=== PATIENT | female | born 1980 | race Hispanic/Latino ===

== ENCOUNTER 2016-09-29 09:20 | Emergency (ER) | payer MEDICAID ==
[~2016-09-29] VITALS: Ht 160 cm; Wt 63.5 kg
[~2016-09-29 09:20] MED LIST: ATIVAN0.5 MG ORAL; ATIVAN1 MG ORAL; BACTRIM-DS1 EA PO; CALCIUM-VITAMI1 EACH PO; CITALOPRAM HBR40 M1 ORAL; CLONAZEPAM1 GM MC; COLACE100 MG ORAL; DILANTIN100 MG ORAL; DILANTIN30 MG ORAL; FERROUS SULFAT325 MG ORAL; FOLIC ACID0.4 MG PO; FOLIC ACID1 MG ORAL; GABAPENTIN300 MG PO; IBUPROFEN200 MG ORAL; IBUPROFEN600 M1 PO; IBUPROFEN600 MG ORAL; IBUPROFEN600 MG PO; KEFLEX500 MG ORAL; KEPPRA500 M2 PO; KEPPRA500 MG ORAL; KLONOPIN0.5 MG ORAL; KLONOPIN0.5 MG PO; KLONOPIN1 MG ORAL; LAMICTAL100 MG ORAL; LAMICTAL150 MG ORAL; LAMICTAL200 MG ORAL; LAMICTAL200 MG PO; LAMICTAL25 MG ORAL; LAMOTRIGINE25 M4 PO; LORAZEPAM1 MG ORAL; MAGNESIUM OXID400 M1 ORAL; NORCO 5-325 TA1 EACH ORAL; OXCARBAZEPINE300 MG; OXCARBAZEPINE600 MG PO; OYSTER SHELL C500 MG PO; SLOW-MAG64 MG PO; TOPAMAX25 MG ORAL; TOPIRAMATE100 MG ORAL; TRILEPTAL150 MG ORAL; TRILEPTAL300 MG PO; TRILEPTAL600 MG PO; ZOFRAN ODT4 MG ORAL; ZONEGRAN100 MG ORAL; ZONEGRAN25 MG ORAL; ZONISAMIDE100 MG ORAL; oxycarbazepine PO
--- NOTE | 2016-09-29 09:32 | Emergency Room Report ---
History of Present Illness General Chief Complaint: Seizure Source: Patient, EMS Present Illness HPI 36YOF BIBEMS for medication refill. Patient with known history of seizures. Multiple visits over years for similar presentation. Has had sub-therapeutic levels of dilantin previously. Not frequently admitted for intractable seizures or status. Is compliant with all seizure meds including Oxcarbazepine, lamotrigine, and dilantin. Took all her medications this morning No seizure today or by EMS en route. Allergies: Coded Allergies: No Known Allergies (Verified , 09/05/10) Patient History Past Medical History: seizures, psych hx Past Surgical History: none Pertinent Family History: none Social History: Denies: alcohol use, drug use, smoking Last Menstrual Period: 09/28/16 Now: No Immunizations: UTD Reviewed Nursing Documentation: PMH: Agreed, PSxH: Agreed Nursing Documentation-PMH Past Medical History: No History, Except For Hx Cardiac Problems: Yes - Left Chest pacemaker Hx Pacemaker: Yes - Left chest Hx Neurological Problems: Yes Hx Seizures: Yes Hx Epilepsy: Yes Review of Systems All Other Systems: negative except mentioned in HPI Physical Exam Vital Signs Date Time Temp Pulse Resp B/P Pulse Ox O2 Delivery O2 Flow Rate FiO2 09/29/16 09:17 85 18 117/77 09/29/16 09:26 Room Air Sp02 EP Interpretation: reviewed, normal General Appearance: normal inspection, well appearing, no apparent distress, alert, GCS 15, non-toxic Head: normocephalic, atraumatic Eyes: bilateral eye EOMI, bilateral eye PERRL ENT: normal ENT inspection, hearing grossly normal, normal voice Neck: normal inspection, full range of motion, supple, no bony tend Respiratory: normal inspection, lungs clear, normal breath sounds, no respiratory distress, no retraction, no wheezing Cardiovascular #1: regular rate, rhythm, no edema Gastrointestinal: normal inspection, normal bowel sounds, non tender, soft, no guarding, no hernia Genitourinary: no CVA tenderness Musculoskeletal: normal inspection, back normal, normal range of motion, Zora' s Sign negative Neurologic: normal inspection, alert, oriented x3, 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 VSS. Afebrile. Compliant with seizure meds No seizures here Dilantin level therapeutic Advised I can refill for 1 week only but not for longer DC home Last Vital Signs Date Time Temp Pulse Resp B/P Pulse Ox O2 Delivery O2 Flow Rate FiO2 09/29/16 09:26 80 16 Room Air 09/29/16 09:17 117/77 Status: improved Disposition: HOME, SELF-CARE Scripts Clobazam (ONFI) 10 Mg Tablet 10 MG PO BID for 7 Days, #14 TAB Prov: FRANCISCO CROW M.D. 09/29/16 FRANCISCO CROW M.D. September 29, 2016 09:32
[2016-09-29] MEDS ORDERED: ONFI10 MG PO (10:29)
[2016-09-29 10:38] VITALS: BP 129/79
== END 2016-09-29 10:41 | disposition home or self-care (01) ==
LOC: EDBD 09:20 → EMR 09:42
DX: Z76.0 Encounter for issue of repeat prescription (principal); G40.909 Epilepsy, unspecified, not intractable, without status epilepticus; Z95.0 Presence of cardiac pacemaker
CPT/HCPCS: 36415; 80185; 99283

== ENCOUNTER 2017-01-05 16:10 | Emergency (ER) | payer MEDICAID ==
[~2017-01-05] VITALS: Ht 162.6 cm; Wt 60.8 kg
[~2017-01-05 16:10] MED LIST changes: +ONFI10 MG PO
[2017-01-05 16:31] VITALS: BP 121/73
[2017-01-05 17:54] LABS: BASOPHILS % (AUTO) 0.8 % (0.0-2.0); EOSINOPHILS % (AUTO) 0.8 % (0.0-3.0); LYMPHOCYTES % (AUTO) 25.4 % (20.0-45.0); MEAN CORPUSCULAR HGB CONC 36.8 G/DL (32.0-36.0); MEAN CORPUSCULAR VOLUME 98 FL (80-99); MEAN PLATELET VOLUME 4.8 FL (6.5-10.1); MONOCYTES % (AUTO) 6.3 % (1.0-10.0); NEUTROPHILS % (AUTO) 66.7 % (45.0-75.0); PLATELET COUNT 278 K/UL (150-450); RED BLOOD COUNT 3.57 M/UL (4.20-5.40); RED CELL DISTRIBUTION WIDTH 11.2 % (11.6-14.8); WHITE BLOOD COUNT 7.2 K/UL (4.8-10.8)
[2017-01-05 17:57] LABS: ACETAMINOPHEN < 10 ug/mL (10-30); ALANINE AMINOTRANSFERASE 10 U/L (3-33); ALBUMIN/GLOBULIN RATIO 1.3 (1.0-2.7); ALCOHOL < 10 mg/dL; ANION GAP 14 (5-15); ASPARTATE AMINO TRANSFERASE 22 U/L (5-40); CALCIUM 8.8 mg/dL (8.6-10.2); CARBON DIOXIDE 22 mEQ/L (20-30); CHLORIDE 94 mEQ/L (98-107); CREATININE 0.9 mg/dL (0.5-0.9); GLOMERULAR FILTRATION RATE > 60 mL/min (>60); HEMOLYSIS 89; POTASSIUM 3.9 mEQ/L (3.4-4.9); SODIUM 130 mEQ/L (135-145); TOTAL PROTEIN 7.3 g/dL (6.6-8.7)
[2017-01-05 18:21] VITALS: BP 116/67
[2017-01-05] MEDS ORDERED: MECLIZINE HCL25 MG ORAL (18:28)
[2017-01-05 18:49] VITALS: BP 116/67
[2017-01-05 18:51] LABS: APPEARANCE,URINE CLOUDY; KETONES,URINE NEGATIVE (NEGATIVE); LEUKOCYTE ESTERASE ,URINE 1+ (NEGATIVE); NITRITE,URINE NEGATIVE (NEGATIVE); PH,URINE 6.5 (4.5-8.0); PROTEIN,URINE 2+ (NEGATIVE); UROBILINOGEN,URINE NORMAL MG/DL (0.0-1.0)
[2017-01-05 19:01] LABS: BACTERIA,URINE FEW /HPF; RBC,URINE TNTC /HPF (0 - 2); SQUAMOUS EPITHELIAL CELL,UR FEW /LPF (NONE/OCC); WBC,URINE 0-2 /HPF (0 - 2)
--- NOTE | 2017-01-05 20:17 | Emergency Room Report ---
History of Present Illness General Chief Complaint: Vertigo Source: Patient Present Illness HPI 36-year-old female presents to ER for evaluation. Patient states that starting today she started to feel dizziness with room spinning sensation. Patient states symptoms started shortly after she became very anxious. States she is upset about some family issues. Notes history of anxiety. Notes history of seizures but states she is compliant with her medications and denies having a seizure. Denies chest pain shortness of breath. No other aggravating or relieving factors. Denies any other associated symptoms Allergies: Coded Allergies: NO KNOWN ALLERGIES (Unverified Allergy, Unknown, 09/29/16) Patient History Past Medical History: seizures Past Surgical History: pacemaker Pertinent Family History: none Social History: Denies: alcohol use, drug use, smoking Now: No Immunizations: UTD Reviewed Nursing Documentation: PMH: Agreed, PSxH: Agreed Nursing Documentation-PMH Hx Cardiac Problems: Yes - Left Chest pacemaker Hx Pacemaker: Yes - Left chest Hx Neurological Problems: Yes Hx Seizures: Yes Hx Epilepsy: Yes Review of Systems All Other Systems: negative except mentioned in HPI Physical Exam Vital Signs Date Time Temp Pulse Resp B/P Pulse Ox O2 Delivery O2 Flow Rate FiO2 01/05/17 16:12 98.6 64 16 120/76 99 Room Air Sp02 EP Interpretation: reviewed, normal General Appearance: no apparent distress, alert, GCS 15, non-toxic Head: normocephalic, atraumatic Eyes: bilateral eye PERRL, bilateral eye normal inspection ENT: hearing grossly normal, normal pharynx, no angioedema, normal voice Neck: full range of motion, supple/symm/no masses Respiratory: chest non-tender, lungs clear, normal breath sounds, speaking full sentences Cardiovascular #1: regular rate, rhythm, no edema Cardiovascular #2: 2+ carotid (R), 2+ carotid (L), 2+ radial (R), 2+ radial (L) , 2+ dorsalis pedis (R), 2+ dorsalis pedis (L) Gastrointestinal: normal bowel sounds, non tender, soft, non-distended, no guarding, no rebound Rectal: deferred Genitourinary: normal inspection, no CVA tenderness Musculoskeletal: back normal, gait/station normal, normal range of motion, non- tender Neurologic: alert, oriented x3, responsive, motor strength/tone normal, sensory intact, speech normal Psychiatric: judgement/insight normal, memory normal, depressed affect, anxious Reflexes: 3+ bicep (R), 3+ bicep (L), 3+ tricep (R), 3+ tricep (L), 3+ knee (R) , 3+ knee (L) Skin: normal color, no rash, warm/dry, well hydrated Lymphatic: no adenopathy Medical Decision Making Diagnostic Impression: Primary Impression: Vertigo Additional Impression: Anxiety ER Course Hospital Course 36-year-old female presents ED complaining of dizziness x1, feeling anxious Differential diagnoses include: OR/unstable angina, SVT, A. fib, V. tach, CVA/ TIA, intracranial mass, vertigo Clinical course Patient placed on stretcher. 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 After initial history and physical I ordered labs, EKG, IVFs, CT Brain. given IV valium labs reviewed- no leukocytosis, hemoglobin/hematocrit stable, electrolytes okay , troponins negative EKG - NSR, no acute ischemic changes intperreted by me CT brain negative Upon reassessment patient states his symptoms have improved. Clinical findings consistent with vertigo. Also appears less anxious I. I feel this is a highly complex case requiring extensive working including EKG/Rhythm strip, Xray/CT/US, Blood/urine lab work, repeat exams while in ED, and administration of strong opiates/narcotics for pain control, admission to hospital or close patient follow up. Diagnosis - vertigo, anxiety stable and discharged to home with prescription for meclizine. Followup with PMD. Return to ED if symptoms recur or worsen Labs Test 01/05/17 16:57 01/05/17 17:28 01/05/17 17:43 Sodium Level 130 mEQ/L (135-145) Potassium Level 3.9 mEQ/L (3.4-4.9) Chloride Level 94 mEQ/L (98-107) Carbon Dioxide Level 22 mEQ/L (20-30) Anion Gap 14 (5-15) Blood Urea Nitrogen 7 mg/dL (7-23) Creatinine 0.9 mg/dL (0.5-0.9) Estimat Glomerular Filtration Rate > 60 mL/min (>60) Glucose Level 81 mg/dL (74-106) Calcium Level 8.8 mg/dL (8.6-10.2) Total Bilirubin 0.2 mg/dL (0.0-1.2) Aspartate Amino Transf (AST/SGOT) 22 U/L (5-40) Alanine Aminotransferase (ALT/SGPT) 10 U/L (3-33) Alkaline Phosphatase 112 U/L (35-104) Total Protein 7.3 g/dL (6.6-8.7) Albumin 4.2 g/dL (3.5-5.2) Globulin 3.1 g/dL Albumin/Globulin Ratio 1.3 (1.0-2.7) Salicylates Level < 1 mg/dL (10-30) Acetaminophen Level < 10 ug/mL (10-30) Phenytoin (Dilantin) Level 17.5 ug/mL (10-20) Serum Alcohol < 10 mg/dL White Blood Count 7.2 K/UL (4.8-10.8) Red Blood Count 3.57 M/UL (4.20-5.40) Hemoglobin 12.9 G/DL (12.0-16.0) Hematocrit 34.9 % (37.0-47.0) Mean Corpuscular Volume 98 FL (80-99) Mean Corpuscular Hemoglobin 36.0 PG (27.0-31.0) Mean Corpuscular Hemoglobin Concent 36.8 G/DL (32.0-36.0) Red Cell Distribution Width 11.2 % (11.6-14.8) Platelet Count 278 K/UL (150-450) Mean Platelet Volume 4.8 FL (6.5-10.1) Neutrophils (%) (Auto) 66.7 % (45.0-75.0) Lymphocytes (%) (Auto) 25.4 % (20.0-45.0) Monocytes (%) (Auto) 6.3 % (1.0-10.0) Eosinophils (%) (Auto) 0.8 % (0.0-3.0) Basophils (%) (Auto) 0.8 % (0.0-2.0) Urine Color Red Urine Appearance Cloudy Urine pH 6.5 (4.5-8.0) Urine Specific [place] 1.010 (1.005-1.035) Urine Protein 2+ (NEGATIVE) Urine Glucose (UA) Negative (NEGATIVE) Urine Ketones Negative (NEGATIVE) Urine Occult Blood 5+ (NEGATIVE) Urine Nitrite Negative (NEGATIVE) Urine Bilirubin Negative (NEGATIVE) Urine Urobilinogen Normal MG/DL (0.0-1.0) Urine Leukocyte Esterase 1+ (NEGATIVE) Urine RBC Tntc /HPF (0 - 2) Urine WBC 0-2 /HPF (0 - 2) Urine Squamous Epithelial Cells Few /LPF (NONE/OCC) Urine Bacteria Few /HPF (NONE) Urine Opiates Screen Negative (NEGATIVE) Urine Barbiturates Screen Negative (NEGATIVE) Phencyclidine (PCP) Screen Negative (NEGATIVE) Urine Amphetamines Screen Negative (NEGATIVE) Urine Benzodiazepines Screen Positive (NEGATIVE) Urine Cocaine Screen Negative (NEGATIVE) Urine Marijuana (THC) Screen Negative (NEGATIVE) EKG Diagnostic Results Rate: normal Rhythm: NSR ST Segments: no acute changes ASA given to the pt in ED: No Rhythm Strip Diag. Results EP Interpretation: yes Rhythm: NSR, no PVC's, no ectopy CT/MRI/US Diagnostic Results CT/MRI/US Diagnostic Results : Imaging Test Ordered: CT head Impression no acute process Last Vital Signs Date Time Temp Pulse Resp B/P Pulse Ox O2 Delivery O2 Flow Rate FiO2 01/05/17 18:49 98.6 63 13 116/67 100 Room Air Status: improved Disposition: HOME, SELF-CARE Condition: Improved Scripts Meclizine Hcl* (MECLIZINE*) 25 Mg Tablet 25 MG ORAL THREE TIMES A DAY, #21 TAB Prov: PATTIE OROZCO 01/05/17 Patient Instructions: Vertigo Additional Instructions: I discussed my findings with the patient. All questions and concerns have been answered. Treatment and medication compliance have been addressed. I advised the patient that they need to follow up with PMD in 3-5 days. Return to ED if symptoms worsen, new symptoms arise, or if needed for any reason. Patient verbalized understanding of discharge instructions. ANASTASIYA NAPIER M.D. Jan 05, 2017 20:17
--- NOTE | 2017-01-08 17:57 | Cardiology Report ---
APPROVED REPORT EKG Measurement Heart [id number] Normal sinus rhythm Normal ECG
--- NOTE | 2017-01-09 08:28 | Diagnostic Imaging Report ---
Indication: Headache Technique: Contiguous 5 mm thick transaxial imaging of the head obtained in a Siemens Sensation [address] scanner. Soft tissue and bone windows generated. Total Dose length Product (DLP): [address] Dose Index Volume (CTDIvol): 70.38 mGy Comparison: 12/14/13 Findings: The size and configuration of the cortical sulci, basal cisterns, and ventricles are within normal limits for age. There is no mass effect, midline shift, or edema identified. There is no evidence of acute hemorrhage or abnormal intra-axial or extra-axial fluid collections. The bones and soft tissues are unremarkable. Impression: No mass effect, edema or acute bleed. The CT scanner at [facility] is accredited by the [employer] and the scans are performed using dose optimization techniques as appropriate to a performed exam including Automatic Exposure control.
== END 2017-01-05 18:49 | disposition home or self-care (01) ==
LOC: EDBD 16:10 → EMR 18:01
DX: R42 Dizziness and giddiness (principal); F41.9 Anxiety disorder, unspecified; Z95.0 Presence of cardiac pacemaker; G40.909 Epilepsy, unspecified, not intractable, without status epilepticus
CPT/HCPCS: 36415; 70450; 80053; 80185; 80300; 80329; 81003; 85025; 93005; 96374; 96375; 99284; J3360; J7040

== ENCOUNTER 2017-01-16 18:18 | Inpatient (IN) | payer MEDICAID ==
[~2017-01-16] VITALS: Ht 144.8 cm; Wt 72.6 kg
[~2017-01-16 18:18] MED LIST changes: +MECLIZINE HCL25 MG ORAL
[2017-01-16 19:05] LABS: APPEARANCE,URINE CLEAR; KETONES,URINE NEGATIVE (NEGATIVE); LEUKOCYTE ESTERASE ,URINE NEGATIVE (NEGATIVE); NITRITE,URINE NEGATIVE (NEGATIVE); PH,URINE 8 (4.5-8.0); PROTEIN,URINE NEGATIVE (NEGATIVE); UROBILINOGEN,URINE NORMAL MG/DL (0.0-1.0)
[2017-01-16 19:05] LABS: BASOPHILS % (AUTO) 0.6 % (0.0-2.0); EOSINOPHILS % (AUTO) 0.5 % (0.0-3.0); MEAN CORPUSCULAR HEMOGLOBIN 34.4 PG (27.0-31.0); MEAN CORPUSCULAR HGB CONC 35.4 G/DL (32.0-36.0); MEAN CORPUSCULAR VOLUME 97 FL (80-99); MEAN PLATELET VOLUME 4.9 FL (6.5-10.1); MONOCYTES % (AUTO) 6.3 % (1.0-10.0); NEUTROPHILS % (AUTO) 76.6 % (45.0-75.0); PLATELET COUNT 317 K/UL (150-450); RED BLOOD COUNT 3.82 M/UL (4.20-5.40); WHITE BLOOD COUNT 10.1 K/UL (4.8-10.8)
[2017-01-16 19:26] LABS: ACETAMINOPHEN < 10 ug/mL (10-30); ALANINE AMINOTRANSFERASE 9 U/L (3-33); ALBUMIN/GLOBULIN RATIO 1.3 (1.0-2.7); ALCOHOL < 10 mg/dL; ANION GAP 12 (5-15); ASPARTATE AMINO TRANSFERASE 17 U/L (5-40); CALCIUM 9.2 mg/dL (8.6-10.2); CARBON DIOXIDE 25 mEQ/L (20-30); CHLORIDE 98 mEQ/L (98-107); CREATININE 0.8 mg/dL (0.5-0.9); GLOMERULAR FILTRATION RATE > 60 mL/min (>60); HEMOLYSIS 55; POTASSIUM 4.6 mEQ/L (3.4-4.9); SODIUM 135 mEQ/L (135-145); TOTAL PROTEIN 7.5 g/dL (6.6-8.7)
[2017-01-16 19:37] VITALS: BP 117/63
--- NOTE | 2017-01-16 21:29 | Emergency Room Report ---
History of Present Illness General Chief Complaint: Dizziness Source: Patient, EMS Present Illness HPI Patient is complaining of dizziness. She fell and hit her head. She denies loss of consciousness. She has a history of seizures. She just recently started and medication to try to treat dizziness (meclizine). She is on multiple medications to control her seizures. She has not changed seizure meds but meclizine was added. She is unable to ambulate without falling at this time. She denies headache except where she hit her head. This is minimal tenderness, no meds taken for this, not radiate, aching. No neck pain. Patient denies fevers, chest pain, nausea, vomiting, diarrhea. She states that she is not . She is somewhat depressed, but not suicidal. Denies other drugs. In the past she has been seen for status as well as subtherapeutic anti- epileptic medication. Allergies: Coded Allergies: NO KNOWN ALLERGIES (Unverified Allergy, Unknown, 09/29/16) Patient History Past Medical History: see triage record Past Surgical History: pacemaker Social History: Denies: alcohol use, drug use, smoking Social History Narrative from home Last Menstrual Period: 8-5 Now: No Reviewed Nursing Documentation: PMH: Agreed, PSxH: Agreed Nursing Documentation-PMH Hx Cardiac Problems: Yes - Left Chest pacemaker Hx Pacemaker: Yes - Left chest Hx Neurological Problems: Yes Hx Seizures: Yes Hx Epilepsy: Yes Review of Systems All Other Systems: negative except mentioned in HPI Physical Exam Vital Signs Date Time Temp Pulse Resp B/P Pulse Ox O2 Delivery O2 Flow Rate FiO2 01/16/17 18:14 98.2 89 16 118/72 98 Room Air Sp02 EP Interpretation: reviewed, normal General Appearance: well appearing, no apparent distress, GCS 15, lethargic - slightly Head: normocephalic, other - tender R parietal area, no hematoma felt Eyes: bilateral eye EOMI - some nystagmus, bilateral eye PERRL, bilateral eye normal inspection ENT: moist mucus membranes Neck: supple, no bony tend Respiratory: lungs clear, normal breath sounds Cardiovascular #1: regular rate, rhythm Cardiovascular #2: 2+ radial (R) Gastrointestinal: normal inspection, normal bowel sounds, non tender, no mass, non-distended Musculoskeletal: back normal, gait/station normal, normal range of motion, pelvis stable Neurologic: alert, 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, 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 - with some nystagmus , DTRs symmetric, sensory intact, speech normal, other - unable to walk unassisted Psychiatric: no suicidal/homicidal ideation, depressed affect Reflexes: 2+ knee (R), 2+ knee (L) Skin: normal inspection, warm/dry Medical Decision Making Diagnostic Impression: Primary Impression: Fall Qualified Codes: W19.XXXA - Unspecified fall, initial encounter Additional Impressions: Adverse reaction of antiepileptic Qualified Codes: T42.75XA - Adverse effect of unspecified antiepileptic and sedative-hypnotic drugs, initial encounter Dizziness ER Course Patient presents with dizziness and falling episodes with head trauma. Differential includes medication excess, labyrinthitis, Mnire's disease, electrolyte imbalance amongst others. Evaluation will be was CT of the head, EKG, labs. Most of here anti-epileptic medications cannot be determined by blood levels however she is on phenytoin and this will be checked. She'll be treated with IV hydration and Zofran. Consideration of use of meclizine, however, the patient is somewhat lethargic at this time. Lungs are clear and CXR not indicated at this time. EKG with normal sinus rhythm. labs basically normal with the elevated alkaline phosphatase. Phenytoin is therapeutic at 16.5. Chest x-ray unremarkable CT of the head no bleed mass or edema. Tox is positive for benzos. This could explain unsteady gait and could contribute to dizziness. The patient's feels dizzy and unable to ambulate without assistance. The patient is at risk for falling episodes and needs to be admitted to the hospital for observation and possible adjustment of her antiepileptic medication. Admit tele Dr. العراقي. Laboratory Tests Test 01/16/17 18:30 01/16/17 18:51 01/16/17 18:56 Urine Color Pale yellow Urine Appearance Clear Urine pH 8 (4.5-8.0) Urine Specific [place] 1.010 (1.005-1.035) Urine Protein Negative (NEGATIVE) Urine Glucose (UA) Negative (NEGATIVE) Urine Ketones Negative (NEGATIVE) Urine Occult Blood Negative (NEGATIVE) Urine Nitrite Negative (NEGATIVE) Urine Bilirubin Negative (NEGATIVE) Urine Urobilinogen Normal MG/DL (0.0-1.0) Urine Leukocyte Esterase Negative (NEGATIVE) Urine HCG, Qualitative Negative Urine Opiates Screen Negative (NEGATIVE) Urine Barbiturates Screen Negative (NEGATIVE) Phencyclidine (PCP) Screen Negative (NEGATIVE) Urine Amphetamines Screen Negative (NEGATIVE) Urine Benzodiazepines Screen Positive (NEGATIVE) H Urine Cocaine Screen Negative (NEGATIVE) Urine Marijuana (THC) Screen Negative (NEGATIVE) Sodium Level 135 mEQ/L (135-145) Potassium Level 4.6 mEQ/L (3.4-4.9) Chloride Level 98 mEQ/L (98-107) Carbon Dioxide Level 25 mEQ/L (20-30) Anion Gap 12 (5-15) Blood Urea Nitrogen 6 mg/dL (7-23) L Creatinine 0.8 mg/dL (0.5-0.9) Estimate Glomerular Filtration Rate > 60 mL/min (>60) Glucose Level 102 mg/dL (74-106) Calcium Level 9.2 mg/dL (8.6-10.2) Total Bilirubin < 0.2 mg/dL (0.0-1.2) Aspartate Amino Transferase (AST) 17 U/L (5-40) Alanine Aminotransferase (ALT) 9 U/L (3-33) Alkaline Phosphatase 134 U/L (35-104) H Total Creatine Kinase 75 U/L (26-140) Total Protein 7.5 g/dL (6.6-8.7) Albumin 4.3 g/dL (3.5-5.2) Globulin 3.2 g/dL Albumin/Globulin Ratio 1.3 (1.0-2.7) Acetaminophen Level < 10 ug/mL (10-30) L Phenytoin (Dilantin) Level 16.5 ug/mL (10-20) Serum Alcohol < 10 mg/dL White Blood Count 10.1 K/UL (4.8-10.8) Red Blood Count 3.82 M/UL (4.20-5.40) L Hemoglobin 13.1 G/DL (12.0-16.0) Hematocrit 37.1 % (37.0-47.0) Mean Corpuscular Volume 97 FL (80-99) Mean Corpuscular Hemoglobin 34.4 PG (27.0-31.0) H Mean Corpuscular Hemoglobin Concent 35.4 G/DL (32.0-36.0) Red Cell Distribution Width 11.0 % (11.6-14.8) L Platelet Count 317 K/UL (150-450) Mean Platelet Volume 4.9 FL (6.5-10.1) L Neutrophils (%) (Auto) 76.6 % (45.0-75.0) H Lymphocytes (%) (Auto) 16.0 % (20.0-45.0) L Monocytes (%) (Auto) 6.3 % (1.0-10.0) Eosinophils (%) (Auto) 0.5 % (0.0-3.0) Basophils (%) (Auto) 0.6 % (0.0-2.0) EKG Diagnostic Results Rate: normal Rhythm: NSR ST Segments: no acute changes Rhythm Strip Diag. Results EP Interpretation: yes Rhythm: NSR, no PVC's, no ectopy CT/MRI/US Diagnostic Results CT/MRI/US Diagnostic Results : Imaging Test Ordered: head Impression no bleed, mass or edema Last Vital Signs Date Time Temp Pulse Resp B/P Pulse Ox O2 Delivery O2 Flow Rate FiO2 01/16/17 19:37 98.2 76 18 117/63 100 Room Air Status: improved Disposition: ADMITTED INPATIENT Condition: Serious Referrals: NOT CHOSEN IPA/,REFERRING (PCP) Guicho Palafox M.D. Jan 16, 2017 21:29
[2017-01-16 21:58] VITALS: BP 105/47
[2017-01-16] MEDS: clonazePAM 0.5mg tab ORAL SCH (23:18)
[2017-01-17 04:00] VITALS: BP 97/57
[2017-01-17] MEDS: clonazePAM 0.5mg tab ORAL SCH ×3 (05:46→22:00)
[2017-01-17 08:11] VITALS: BP 105/59
[2017-01-17] MEDS: Phenytoin 100mg cap ORAL SCH ×2 (10:09→18:02)
[2017-01-17] MEDS: Citalopram 20mg Tab ORAL SCH (10:09)
[2017-01-17] MEDS: OXcarbazepine 150mg tab ORAL SCH ×2 (10:11→18:03)
--- NOTE | 2017-01-17 11:35 | Diagnostic Imaging Report ---
Indications: Vertigo Technique: Continuous helical CT imaging of the brain was performed with automatic exposure control on a Siemens sensation [address] scanner. Axial and coronal images were reconstructed at 5 mm slice thickness and interval. CTDI volume(s): 70 mGy Total DLP: 1467 mGy-cm Findings: Comparison: None. Intracranial anatomy is unremarkable. No evidence of mass or hemorrhage, other attenuation abnormality, mass effect, midline shift, hydrocephalus or increased intracranial pressure. Bone window images are unremarkable. Visualized paranasal sinuses and mastoid air cells are clear. IMPRESSION: Negative noncontrast CT scan of the brain . Early/subtle acute abnormalities may be missed, however. If clinically indicated, MRI of the brain without and with gadolinium may be of benefit in further evaluation. This correlates with Dr. Garcia's preliminary report. The CT scanner at [facility] is accredited by the [employer] and the scans are performed using protocols designed to limit radiation exposure to as low as reasonably achievable to attain images of sufficient resolution adequate for diagnostic evaluation.
[2017-01-17 11:39] VITALS: BP 112/71
--- NOTE | 2017-01-17 12:05 | History and Physical ---
History of Present Illness General Date patient seen: Jan 17, 2017 Reason for Hospitalization: Dizziness Present Illness HPI 36 year old female with hx of seizures, presented to ER complaining of dizziness. She fell and hit her head. She denies loss of consciousness. She is on multiple medications to control her seizures. She is unable to ambulate without falling at this time. She denies headache except where she hit her head. Allergies: Coded Allergies: NO KNOWN ALLERGIES (Unverified Allergy, Unknown, 09/29/16) Medication History Scheduled Citalopram Hydrobromide* (Citalopram Hbr*), 40 MG ORAL DAILY, (Reported) Clobazam (Onfi), 10 MG PO BID Clonazepam* (Klonopin*), 0.5 MG PO Q8HR Clonazepam* (Klonopin*), 1 MG ORAL Q6H, (Reported) Docusate Sodium* (Colace*), 100 MG ORAL DAILY, (Reported) Ferrous Sulfate* (Ferrous Sulfate*), 325 MG ORAL THREE TIMES A DAY, (Reported) Folic Acid (Folic Acid), 1 MG PO BID, (Reported) Gabapentin* (Gabapentin*), 300 MG PO BID, (Reported) Ibuprofen (Ibuprofen), 600 MG PO EVERY 6 HOURS Ibuprofen (Ibuprofen*), 800 MG ORAL Q8H, (Reported) Ibuprofen* (Motrin*), 600 MG PO TID Ibuprofen* (Motrin*), 600 MG ORAL FOUR TIMES A DAY, (Reported) Lamotrigine* (Lamictal*), 250 MG ORAL BID, (Reported) Lamotrigine* (Lamictal*), 250 MG ORAL BID, (Reported) Lamotrigine* (Lamictal*), 200 MG ORAL BID, (Reported) Levetiracetam (Keppra), 500 MG PO BID, (Reported) Levetiracetam (Keppra), 500 MG ORAL EVERY 12 HOURS, (Reported) Lorazepam* (Ativan*), 5 MG ORAL BEDTIME, (Reported) Lorazepam* (Ativan*), 1 MG ORAL THREE TIMES A DAY Lorazepam* (Ativan*), 0.5 MG ORAL THREE TIMES A DAY Lorazepam* (Lorazepam*), 1 MG ORAL DAILY, (Reported) Magnesium Oxide (Magnesium Oxide), 400 MG ORAL BID, (Reported) Magnesium Oxide (Magnesium Oxide), 400 MG ORAL BID, (Reported) Meclizine Hcl* (Meclizine*), 25 MG ORAL THREE TIMES A DAY Oxcarbazepine (Trileptal), 600 MG PO BID, (Reported) Oxcarbazepine (Oxcarbazepine), 300 MG ORAL TWICE A DAY, (Reported) Oxcarbazepine (Oxcarbazepine), 300 MG ORAL TWICE A DAY, (Reported) Oxcarbazepine* (Trileptal*), 600 MG PO BID, (Reported) Oxcarbazepine* (Trileptal*), 600 MG PO BID, (Reported) Phenytoin (Dilantin), 300 MG ORAL BEDTIME, (Reported) Phenytoin Sodium Extended* (Dilantin*), 300 MG ORAL BEDTIME, (Reported) Phenytoin Sodium Extended* (Dilantin*), 200 MG ORAL BID Phenytoin Sodium Extended* (Dilantin*), 200 MG ORAL TID Topiramate* (Topamax*), 25 MG ORAL Q12HR, (Reported) Topiramate* (Topamax*), 50 MG ORAL EVERY 12 HOURS, (Reported) Trimethoprim/Sulfamethoxazole (Bactrim Ds Tablet), 1 EA PO BID Zonisamide (Zonegran), 400 MG ORAL BEDTIME, (Reported) Zonisamide* (Zonegran*), 300 MG ORAL HS, (Reported) Zonisamide* (Zonegran*), 400 MG ORAL QHS, (Reported) Zonisamide* (Zonegran*), 400 MG ORAL BEDTIME, (Reported) Zonisamide* (Zonegran*), 100 MG ORAL DAILY, (Reported) Scheduled PRN Ibuprofen* (Motrin*), 600 MG ORAL Q8H PRN for For Pain Miscellaneous Medications Calcium Carbonate (Oyster Shell Calcium), 500 MG PO, (Reported) Calcium Carbonate/Vitamin D3 (Calcium-Vitamin D Tablet), 1 EACH PO, (Reported) Magnesium Chloride (Slow-Mag), MG PO, (Reported) Zonisamide (Zonisamide), 100 MG ORAL, (Reported) Patient History Healthcare decision maker N Resuscitation status Full Code Advanced Directive on File No Past Medical/Surgical History Past Medical/Surgical History: (1) Seizure disorder (2) Anxiety Review of Systems All Other Systems: negative except mentioned in HPI Physical Exam General Appearance: WD/WN, no apparent distress Lines, tubes and drains: peripheral HEENT: normocephalic, atraumatic Neck: non-tender, normal alignment Respiratory/Chest: chest wall non-tender, lungs clear Breasts: no masses Cardiovascular/Chest: normal peripheral pulses, normal rate Abdomen: normal bowel sounds, non tender Genitourinary/Rectal: normal genital exam, normal rectal exam Extremities: normal range of motion, non-tender Skin Exam: normal pigmentation 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 Last 24 Hour Vital Signs Date Time Temp Pulse Resp B/P Pulse Ox O2 Delivery O2 Flow Rate FiO2 01/17/17 11:39 97.2 82 18 112/71 96 Room Air 01/17/17 08:11 97.0 76 18 105/59 98 Room Air 01/17/17 04:00 84 01/17/17 04:00 98.1 90 21 97/57 99 Room Air 01/17/17 00:00 76 01/16/17 22:29 98.2 78 16 105/47 100 Room Air 01/16/17 21:58 98.2 78 16 105/47 100 Room Air 01/16/17 19:37 98.2 76 18 117/63 100 Room Air 01/16/17 18:14 98.2 89 16 118/72 98 Room Air Intake and Output 01/16/17 01/17/17 19:00 07:00 Intake Total 0 ml Output Total 500 ml Balance -500 ml Intake Oral 0 ml Output Urine Total 500 ml # Voids 2 Laboratory Tests Test 01/16/17 18:30 01/16/17 18:51 01/16/17 18:56 Urine Color Pale yellow Urine Appearance Clear Urine pH 8 (4.5-8.0) Urine Specific [place] 1.010 (1.005-1.035) Urine Protein Negative (NEGATIVE) Urine Glucose (UA) Negative (NEGATIVE) Urine Ketones Negative (NEGATIVE) Urine Occult Blood Negative (NEGATIVE) Urine Nitrite Negative (NEGATIVE) Urine Bilirubin Negative (NEGATIVE) Urine Urobilinogen Normal MG/DL (0.0-1.0) Urine Leukocyte Esterase Negative (NEGATIVE) Urine HCG, Qualitative Negative Urine Opiates Screen Negative (NEGATIVE) Urine Barbiturates Screen Negative (NEGATIVE) Phencyclidine (PCP) Screen Negative (NEGATIVE) Urine Amphetamines Screen Negative (NEGATIVE) Urine Benzodiazepines Screen Positive (NEGATIVE) H Urine Cocaine Screen Negative (NEGATIVE) Urine Marijuana (THC) Screen Negative (NEGATIVE) Sodium Level 135 mEQ/L (135-145) Potassium Level 4.6 mEQ/L (3.4-4.9) Chloride Level 98 mEQ/L (98-107) Carbon Dioxide Level 25 mEQ/L (20-30) Anion Gap 12 (5-15) Blood Urea Nitrogen 6 mg/dL (7-23) L Creatinine 0.8 mg/dL (0.5-0.9) Estimat Glomerular Filtration Rate > 60 mL/min (>60) Glucose Level 102 mg/dL (74-106) Calcium Level 9.2 mg/dL (8.6-10.2) Total Bilirubin < 0.2 mg/dL (0.0-1.2) Aspartate Amino Transf (AST/SGOT) 17 U/L (5-40) Alanine Aminotransferase (ALT/SGPT) 9 U/L (3-33) Alkaline Phosphatase 134 U/L (35-104) H Total Creatine Kinase 75 U/L (26-140) Total Protein 7.5 g/dL (6.6-8.7) Albumin 4.3 g/dL (3.5-5.2) Globulin 3.2 g/dL Albumin/Globulin Ratio 1.3 (1.0-2.7) Acetaminophen Level < 10 ug/mL (10-30) L Phenytoin (Dilantin) Level 16.5 ug/mL (10-20) Serum Alcohol < 10 mg/dL White Blood Count 10.1 K/UL (4.8-10.8) Red Blood Count 3.82 M/UL (4.20-5.40) L Hemoglobin 13.1 G/DL (12.0-16.0) Hematocrit 37.1 % (37.0-47.0) Mean Corpuscular Volume 97 FL (80-99) Mean Corpuscular Hemoglobin 34.4 PG (27.0-31.0) H Mean Corpuscular Hemoglobin Concent 35.4 G/DL (32.0-36.0) Red Cell Distribution Width 11.0 % (11.6-14.8) L Platelet Count 317 K/UL (150-450) Mean Platelet Volume 4.9 FL (6.5-10.1) L Neutrophils (%) (Auto) 76.6 % (45.0-75.0) H Lymphocytes (%) (Auto) 16.0 % (20.0-45.0) L Monocytes (%) (Auto) 6.3 % (1.0-10.0) Eosinophils (%) (Auto) 0.5 % (0.0-3.0) Basophils (%) (Auto) 0.6 % (0.0-2.0) Height (Feet): 4 Height (Inches): 9.00 Weight (Pounds): 160 Medications Current Medications Medications (Trade) Dose Ordered Sig/Vaughn Route PRN Reason Start Time Stop Time Status Last Admin Dose Admin Citalopram Hydrobromide (celeXA) 40 mg DAILY ORAL 01/17/17 09:00 02/16/17 08:59 01/17/17 10:09 Clonazepam (KlonoPIN) 0.5 mg Q8HR ORAL 01/16/17 23:00 01/23/17 22:59 01/17/17 05:46 Gabapentin (Neurontin) 300 mg BID ORAL 01/17/17 09:00 02/16/17 08:59 01/17/17 10:06 Lamotrigine (LaMICtal) 200 mg BID ORAL 01/17/17 09:00 02/16/17 08:59 01/17/17 10:07 Levetiracetam (Keppra) 500 mg EVERY 12 HOURS ORAL 01/17/17 09:00 02/16/17 08:59 01/17/17 10:07 Oxcarbazepine (Trileptal) 300 mg TWICE A DAY ORAL 01/17/17 09:00 02/16/17 08:59 01/17/17 10:11 Phenytoin (Dilantin) 200 mg BID ORAL 01/17/17 09:00 02/16/17 08:59 01/17/17 10:09 Zonisamide (Zonegran) 100 mg DAILY ORAL 01/17/17 09:00 02/16/17 08:59 01/17/17 10:06 Assessment/Plan Problem List: (1) Seizure disorder ICD Codes: G40.909 - Epilepsy, unspecified, not intractable,without status epilepticus SNOMED: 572319010 (2) Dizziness ICD Codes: R42 - Dizziness and giddiness SNOMED: 373249289, 622043356 (3) Epileptic seizure, generalized ICD Codes: G40.909 - Epilepsy, unspecified, not intractable, without status epilepticus SNOMED: 03521717 Assessment/Plan neuro evaluation pt/ot psych RONALD RAMOS Jan 17, 2017 12:05
[2017-01-17 15:33] VITALS: BP 122/77
--- NOTE | 2017-01-17 16:49 | Neurology Progress Note ---
Objective Physical Exam Last Vital Signs Date Time Temp Pulse Resp B/P Pulse Ox O2 Delivery O2 Flow Rate FiO2 01/17/17 15:33 97.7 87 18 122/77 98 Room Air Laboratory Tests Test 01/16/17 18:30 01/16/17 18:51 01/16/17 18:56 Urine Color Pale yellow Urine Appearance Clear Urine pH 8 (4.5-8.0) Urine Specific [place] 1.010 (1.005-1.035) Urine Protein Negative (NEGATIVE) Urine Glucose (UA) Negative (NEGATIVE) Urine Ketones Negative (NEGATIVE) Urine Occult Blood Negative (NEGATIVE) Urine Nitrite Negative (NEGATIVE) Urine Bilirubin Negative (NEGATIVE) Urine Urobilinogen Normal MG/DL (0.0-1.0) Urine Leukocyte Esterase Negative (NEGATIVE) Urine HCG, Qualitative Negative Urine Opiates Screen Negative (NEGATIVE) Urine Barbiturates Screen Negative (NEGATIVE) Phencyclidine (PCP) Screen Negative (NEGATIVE) Urine Amphetamines Screen Negative (NEGATIVE) Urine Benzodiazepines Screen Positive (NEGATIVE) H Urine Cocaine Screen Negative (NEGATIVE) Urine Marijuana (THC) Screen Negative (NEGATIVE) Sodium Level 135 mEQ/L (135-145) Potassium Level 4.6 mEQ/L (3.4-4.9) Chloride Level 98 mEQ/L (98-107) Carbon Dioxide Level 25 mEQ/L (20-30) Anion Gap 12 (5-15) Blood Urea Nitrogen 6 mg/dL (7-23) L Creatinine 0.8 mg/dL (0.5-0.9) Estimat Glomerular Filtration Rate > 60 mL/min (>60) Glucose Level 102 mg/dL (74-106) Calcium Level 9.2 mg/dL (8.6-10.2) Total Bilirubin < 0.2 mg/dL (0.0-1.2) Aspartate Amino Transf (AST/SGOT) 17 U/L (5-40) Alanine Aminotransferase (ALT/SGPT) 9 U/L (3-33) Alkaline Phosphatase 134 U/L (35-104) H Total Creatine Kinase 75 U/L (26-140) Total Protein 7.5 g/dL (6.6-8.7) Albumin 4.3 g/dL (3.5-5.2) Globulin 3.2 g/dL Albumin/Globulin Ratio 1.3 (1.0-2.7) Acetaminophen Level < 10 ug/mL (10-30) L Phenytoin (Dilantin) Level 16.5 ug/mL (10-20) Serum Alcohol < 10 mg/dL White Blood Count 10.1 K/UL (4.8-10.8) Red Blood Count 3.82 M/UL (4.20-5.40) L Hemoglobin 13.1 G/DL (12.0-16.0) Hematocrit 37.1 % (37.0-47.0) Mean Corpuscular Volume 97 FL (80-99) Mean Corpuscular Hemoglobin 34.4 PG (27.0-31.0) H Mean Corpuscular Hemoglobin Concent 35.4 G/DL (32.0-36.0) Red Cell Distribution Width 11.0 % (11.6-14.8) L Platelet Count 317 K/UL (150-450) Mean Platelet Volume 4.9 FL (6.5-10.1) L Neutrophils (%) (Auto) 76.6 % (45.0-75.0) H Lymphocytes (%) (Auto) 16.0 % (20.0-45.0) L Monocytes (%) (Auto) 6.3 % (1.0-10.0) Eosinophils (%) (Auto) 0.5 % (0.0-3.0) Basophils (%) (Auto) 0.6 % (0.0-2.0) Impression/Recommendations Problems: (1) Benign paroxysmal vertigo, bilateral (2) Seizure disorder (3) s/p vagus nerve stimulator placement (4) Anxiety Status: unchanged Recommendations #[id number] KATHY JORGENSEN Jan 17, 2017 16:49
[2017-01-17] MEDS: Meclizine 25mg tab ORAL SCH ×2 (17:00→23:35)
[2017-01-17 20:00] VITALS: BP 114/62
[2017-01-18] VITALS (7 sets, daily range): BP systolic 106–132; BP diastolic 64–75
--- NOTE | 2017-01-18 01:15 | Consultation ---
DATE OF CONSULTATION: 01/17/2017 NEUROLOGICAL CONSULTATION CONSULTING PHYSICIAN: Francisco Chan M.D. REFERRING PHYSICIAN: Carl العراقي M.D. HISTORY OF PRESENT ILLNESS: This is a 36-year-old female seen in neurological consultation to evaluate new onset of positional vertigo. The patient informed me about a week ago she had developed vertigo increasing when she sits upright. She was placed on meclizine, felt some improvement, but she ran out of medication and symptoms progressed. She came to emergency room complaining of severe dizziness and instability of gait, on one occasion she had fell down hit her head without loss of consciousness The patient denies any other associated symptomatology, although she was described as being depressed. The patient complained of memory loss. Her vital signs on admission were stable. She was afebrile. On examination, there was some nystagmus, there was tenderness in right parietal region, the patient was very unsteady requiring assistance for ambulation. Her EKG was normal sinus rhythm. Phenytoin level was in a therapeutic range of 16.5. Chest x-ray, normal. CAT scan of the brain report with no abnormality. The patient's diagnostic studies also included laboratory work, which revealed normal CBC, normal chemistry panel, toxicology panel positive for benzodiazepines with phenytoin level 16.5, and her urinalysis was negative. Since admission till present, she remained drowsy but was less dizzy. Her treatment now includes Celexa 40 mg daily, Klonopin 0.5 mg q.8 h., Neurontin 300 mg twice a day, Lamictal 200 mg twice a day, Keppra 500 mg twice a day, twice a day, phenytoin 200 mg twice a day, and Zonegran 100 mg daily. PAST MEDICAL HISTORY: The patient has a history of chronic seizure disorder since age of 8, most recently frequency of seizures only once per for month. She has been treated with vagal nerve stimulator placement. ALLERGIES: None reported. SOCIAL HISTORY: Lives with her family. REVIEW OF SYSTEMS: Forgetfulness, acute positional vertigo, drowsiness, but denies chest pain or palpitations. No respiratory problems, has difficulty ambulation. PHYSICAL EXAMINATION: GENERAL: A well-developed and well-nourished female, not in acute distress, lying comfortably in bed asleep. VITAL SIGNS: Current vital signs are stable. Blood pressure 122/77. HEENT: Head is normocephalic. There is tenderness on left parietal region. No deformities. No otorrhea. No rhinorrhea. NECK: Supple. MUSCULOSKELETAL: Unremarkable. There is no deformities. Peripheral pulses 1+ symmetric. MENTAL STATUS: The patient is a very groggy but arousable, follow commands, responding slowly. CRANIAL NERVES: CRANIAL NERVE II: Pupils are both responding to light and accommodation. Extraocular movement intact. CRANIAL NERVE V: Normal corneal response. CRANIAL NERVE VII: No facial asymmetry. CRANIAL NERVE VIII: Normal hearing. CRANIAL NERVES IX THROUGH XII: Within normal limits. Motor examination - normal muscle tone. Strength 5/5 in all extremities. No involuntary movement. Deep reflexes 1+ symmetric with downgoing toes on both sides. SENSORY EXAM: Normal to pinprick. Gait not tested, the patient was very unsteady. IMPRESSION: 1. Benign paroxysmal positional vertigo, rule out acute labyrinthitis. 2. Chronic seizure disorder. 3. Status post vagal nerve stimulator placement. 4. Polypharmacy, multiple anticonvulsants. 5. History of depression and anxiety. DISCUSSION: CAT scan of the brain revealed no acute intracranial abnormalities. Examination reveals no lateralizing findings, but there is obviously positional vertigo noted with mild horizontal nystagmus, and very unsteady gait. Accidental overdose with anticonvulsants possible, now we will go back to her usual dosage. Recheck blood levels. Continue with meclizine 25 mg four times a day, if necessary add a trial of steroids six days tapering dose. Thank you for allowing me to see this interesting patient in neurological consultation. Francisco Chan M.D. DR: CORBY JOB#: [id number] CC:
[2017-01-18] MEDS: clonazePAM 0.5mg tab ORAL SCH ×3 (05:47→22:10)
[2017-01-18] MEDS: Meclizine 25mg tab ORAL SCH ×4 (05:47→22:10)
[2017-01-18] MEDS: OXcarbazepine 150mg tab ORAL SCH ×2 (08:35→18:48)
[2017-01-18] MEDS: Citalopram 20mg Tab ORAL SCH (08:35)
[2017-01-18] MEDS: Phenytoin 100mg cap ORAL SCH ×2 (08:36→18:49)
[2017-01-18] MEDS ORDERED: Heparin 5000 units/ml inj SUBQ SCH (09:00)
--- NOTE | 2017-01-18 12:33 | Pulmonology Progress Note ---
Assessment/Plan Problems: (1) Seizure disorder (2) Dizziness (3) Epileptic seizure, generalized (4) Benign paroxysmal vertigo, bilateral Assessment/Plan med/surg pt/ot f/u neuro recommendations. Subjective ROS Limited/Unobtainable: No Constitutional: Reports: no symptoms HEENT: Repors: no symptoms Respiratory: Reports: no symptoms Allergies: Coded Allergies: NO KNOWN ALLERGIES (Unverified Allergy, Unknown, 09/29/16) Objective Last 24 Hour Vital Signs Date Time Temp Pulse Resp B/P (MAP) Pulse Ox O2 Delivery O2 Flow Rate FiO2 01/18/17 11:27 97.5 80 18 111/64 96 Room Air 01/18/17 08:00 60 01/18/17 07:56 97.2 71 20 114/68 98 Room Air 01/18/17 04:00 69 01/18/17 04:00 97.3 70 20 116/67 99 Room Air 01/18/17 00:00 72 01/18/17 00:00 95.3 71 20 114/69 97 Room Air 01/17/17 20:00 98.4 86 20 114/62 96 Room Air 01/17/17 20:00 86 01/17/17 16:00 87 01/17/17 15:33 97.7 87 18 122/77 98 Room Air General Appearance: WD/WN HEENT: normocephalic, atraumatic Respiratory/Chest: chest wall non-tender, normal breath sounds Breasts: no masses Cardiovascular: normal peripheral pulses, normal rate Abdomen: normal bowel sounds, soft, non tender Genitourinary: normal external genitalia Extremities: no cyanosis, no clubbing Skin: no rash 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, abnormal gait Lymphatic: no neck adenopathy Current Medications Medications (Trade) Dose Ordered Sig/Vaughn Route PRN Reason Start Time Stop Time Status Last Admin Dose Admin Citalopram Hydrobromide (celeXA) 40 mg DAILY ORAL 01/17/17 09:00 02/16/17 08:59 01/18/17 08:35 Clonazepam (KlonoPIN) 0.5 mg Q8HR ORAL 01/16/17 23:00 01/23/17 22:59 01/18/17 05:47 Gabapentin (Neurontin) 300 mg BID ORAL 01/17/17 09:00 02/16/17 08:59 8/23/17 08:35 Heparin Sodium (Porcine) (Heparin 5000 units/ml) 5,000 units EVERY 12 HOURS SUBQ 01/18/17 09:00 02/17/17 08:59 01/18/17 08:38 Lamotrigine (LaMICtal) 200 mg BID ORAL 01/17/17 09:00 02/16/17 08:59 01/18/17 08:36 Levetiracetam (Keppra) 500 mg EVERY 12 HOURS ORAL 01/17/17 09:00 02/16/17 08:59 01/18/17 08:36 Meclizine HCl (Antivert) 12.5 mg Q6H ORAL 01/17/17 17:00 02/16/17 16:59 01/18/17 10:14 Oxcarbazepine (Trileptal) 300 mg TWICE A DAY ORAL 01/17/17 09:00 02/16/17 08:59 01/18/17 08:35 Phenytoin (Dilantin) 200 mg BID ORAL 01/17/17 09:00 02/16/17 08:59 01/18/17 08:36 Zonisamide (Zonegran) 100 mg DAILY ORAL 01/17/17 09:00 02/16/17 08:59 01/18/17 08:35 RONALD RAMOS Jan 18, 2017 12:33
[2017-01-18] MEDS ORDERED: clonazePAM 0.5mg tab ORAL SCH (14:00)
--- NOTE | 2017-01-18 15:36 | Cardiology Report ---
APPROVED REPORT EKG Measurement Heart [id number] Normal sinus rhythm Normal ECG
[2017-01-18] MEDS: Heparin 5000 units/ml inj SUBQ SCH (20:13)
[2017-01-19] VITALS: BP 110/69
[2017-01-19 04:00] VITALS: BP 118/68
[2017-01-19] MEDS: Meclizine 25mg tab ORAL SCH ×3 (05:14→16:53)
[2017-01-19] MEDS: clonazePAM 0.5mg tab ORAL SCH ×2 (05:14→13:56)
[2017-01-19 08:10] LABS: BASOPHILS % (AUTO) 0.5 % (0.0-2.0); EOSINOPHILS % (AUTO) 1.1 % (0.0-3.0); LYMPHOCYTES % (AUTO) 15.3 % (20.0-45.0); MEAN CORPUSCULAR HEMOGLOBIN 32.7 PG (27.0-31.0); MEAN CORPUSCULAR HGB CONC 33.4 G/DL (32.0-36.0); MEAN CORPUSCULAR VOLUME 98 FL (80-99); MEAN PLATELET VOLUME 4.4 FL (6.5-10.1); MONOCYTES % (AUTO) 4.8 % (1.0-10.0); NEUTROPHILS % (AUTO) 78.3 % (45.0-75.0); PLATELET COUNT 337 K/UL (150-450); RED BLOOD COUNT 4.06 M/UL (4.20-5.40); RED CELL DISTRIBUTION WIDTH 10.8 % (11.6-14.8); WHITE BLOOD COUNT 10.4 K/UL (4.8-10.8)
[2017-01-19 08:20] VITALS: BP 109/65
[2017-01-19 08:20] LABS: PROTHROMBIN TIME 10.3 SEC (9.30-11.50)
[2017-01-19 08:27] LABS: ALANINE AMINOTRANSFERASE 8 U/L (3-33); ALBUMIN/GLOBULIN RATIO 1.1 (1.0-2.7); ANION GAP 13 (5-15); ASPARTATE AMINO TRANSFERASE 15 U/L (5-40); CARBON DIOXIDE 24 mEQ/L (20-30); CHLORIDE 104 mEQ/L (98-107); GLOMERULAR FILTRATION RATE > 60 mL/min (>60); HEMOLYSIS 3; PHOSPHORUS 4.3 mg/dL (2.5-4.8); POTASSIUM 3.5 mEQ/L (3.4-4.9); SODIUM 141 mEQ/L (135-145); TOTAL PROTEIN 7.3 g/dL (6.6-8.7)
[2017-01-19] MEDS: OXcarbazepine 150mg tab ORAL SCH ×2 (08:30→18:56)
[2017-01-19] MEDS: Phenytoin 100mg cap ORAL SCH ×2 (08:31→18:57)
[2017-01-19] MEDS: Heparin 5000 units/ml inj SUBQ SCH (08:34)
[2017-01-19] MEDS ORDERED: Citalopram 20mg Tab ORAL SCH (09:00)
[2017-01-19 11:47] VITALS: BP 125/73
--- NOTE | 2017-01-19 15:13 | Pulmonology Progress Note ---
Assessment/Plan Problems: (1) Seizure disorder (2) Dizziness (3) Epileptic seizure, generalized (4) Benign paroxysmal vertigo, bilateral Assessment/Plan med/surg pt/ot f/u neuro recommendations. dc home with outpatient f/u Subjective ROS Limited/Unobtainable: No Interval Events: much cornelius than yesterday, no seizures Constitutional: Reports: no symptoms HEENT: Repors: no symptoms Allergies: Coded Allergies: NO KNOWN ALLERGIES (Unverified Allergy, Unknown, 09/29/16) Objective Last 24 Hour Vital Signs Date Time Temp Pulse Resp B/P (MAP) Pulse Ox O2 Delivery O2 Flow Rate FiO2 01/19/17 11:47 98.2 75 19 125/73 95 Room Air 01/19/17 08:20 98.1 73 19 109/65 97 Room Air 01/19/17 04:00 97.7 65 18 118/68 95 Room Air 01/19/17 00:00 97.9 71 18 110/69 96 Room Air 01/18/17 20:00 97.6 77 18 122/71 96 Room Air 01/18/17 16:00 97.9 87 18 132/66 99 Room Air General Appearance: WD/WN HEENT: normocephalic, atraumatic Respiratory/Chest: chest wall non-tender, lungs clear Cardiovascular: normal peripheral pulses, normal rate Abdomen: normal bowel sounds, soft, non tender Genitourinary: normal external genitalia Skin: no rash 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, no motor/sensory deficits, normal mood/affect Laboratory Tests 01/19/17 07:25: White Blood Count 10.4, Red Blood Count 4.06L, Hemoglobin 13.3, Hematocrit 39.7 , Mean Corpuscular Volume 98, Mean Corpuscular Hemoglobin 32.7H, Mean Corpuscular Hemoglobin Concent 33.4, Red Cell Distribution Width 10.8L, Platelet Count 337, Mean Platelet Volume 4.4L, Neutrophils (%) (Auto) 78.3H, Lymphocytes (%) (Auto) 15.3L, Monocytes (%) (Auto) 4.8, Eosinophils (%) (Auto) 1.1, Basophils (%) (Auto) 0.5, Prothrombin Time 10.3, Prothromb Time International Ratio 1.0, Activated Partial Thromboplast Time 27, Sodium Level 141, Potassium Level 3.5, Chloride Level 104, Carbon Dioxide Level 24, Anion Gap 13, Blood Urea Nitrogen 13, Creatinine 1.0H, Estimat Glomerular Filtration Rate > 60, Glucose Level 82, Calcium Level 9.0, Phosphorus Level 4.3, Magnesium Level 2.0, Total Bilirubin < 0.2, Aspartate Amino Transf (AST/SGOT) 15, Alanine Aminotransferase (ALT/SGPT) 8, Alkaline Phosphatase 115H, Total Protein 7.3, Albumin 3.9, Globulin 3.4, Albumin/Globulin Ratio 1.1 Current Medications Medications (Trade) Dose Ordered Sig/Vaughn Route PRN Reason Start Time Stop Time Status Last Admin Dose Admin Citalopram Hydrobromide (celeXA) 40 mg DAILY ORAL 01/19/17 09:00 02/16/17 08:59 01/19/17 08:30 Clonazepam (KlonoPIN) 0.5 mg Q8HR ORAL 01/18/17 22:00 01/25/17 21:59 01/19/17 13:56 Gabapentin (Neurontin) 300 mg BID ORAL 01/18/17 18:00 02/16/17 08:59 01/19/17 08:30 Heparin Sodium (Porcine) (Heparin 5000 units/ml) 5,000 units EVERY 12 HOURS SUBQ 01/18/17 21:00 02/17/17 08:59 01/19/17 08:34 Lamotrigine (LaMICtal) 200 mg BID ORAL 01/18/17 18:00 02/16/17 08:59 01/19/17 08:30 Levetiracetam (Keppra) 500 mg EVERY 12 HOURS ORAL 01/18/17 21:00 02/16/17 08:59 01/19/17 08:30 Meclizine HCl (Antivert) 12.5 mg Q6H ORAL 01/18/17 17:00 02/16/17 16:59 01/19/17 11:07 Oxcarbazepine (Trileptal) 300 mg TWICE A DAY ORAL 01/18/17 18:00 02/16/17 08:59 01/19/17 08:30 Phenytoin (Dilantin) 200 mg BID ORAL 01/18/17 18:00 02/16/17 08:59 01/19/17 08:31 Zonisamide (Zonegran) 100 mg DAILY ORAL 01/19/17 09:00 02/16/17 08:59 01/19/17 08:31 RONALD RAMOS Jan 19, 2017 15:13
[2017-01-19 15:29] VITALS: BP 123/69
--- NOTE | 2017-01-20 12:01 | Discharge Summary ---
Discharge Summary Hospital Course Date of Admission Jan 16, 2017 at 21:38 Date of Discharge Jan 19, 2017 at 20:10 Admitting Diagnosis adverse medication reaction/falling NIDIA Hernandez is a 36 year old female who was admitted on Jan 16, 2017 at 21:38 for Adverse Medication Reaction,Falling Hospital Course [id number] Discharge Discharge Disposition Patient was discharged to Home (01) Discharge Diagnoses: Ximena Kahn NP Jan 20, 2017 12:01
--- NOTE | 2017-01-21 06:45 | Discharge Summary 2 SIG ---
DATE OF ADMISSION: 01/16/2017 DATE OF DISCHARGE: 01/19/2017 ASSEMBLY LINE MACHINE OPERATOR: Francisco Chan M.D. BRIEF HOSPITAL COURSE: The patient is a 36-year-old female with history of seizure, who presented to ED complaining of dizziness. She fell and hit her head, but denied any loss of consciousness. She is on multiple medications for her seizure disorder and is unable to ambulate without falling. On evaluation at ED, EKG was in normal sinus rhythm. Phenytoin level was 16. CT of the head showed no bleed, mass effect, or edema, and labs showed elevated alkaline phosphatase. Toxicology screen was positive for benzodiazepine, which could explain unsteady gait and could have contributed to dizziness. The patient is unable to ambulate due to severe dizziness and is at risk of falling. She was then admitted to telemetry and underwent neurological evaluation with Dr. Chan. A week prior, she developed vertigo, which was increased when she seated upright. She was placed on meclizine with some improvement. On examination, there was nystagmus and there was tenderness in the right parietal region and the patient was very unsteady requiring assistance for ambulation. Examination revealed no lateralizing findings, but there is obviously positional vertigo noted with mild horizontal nystagmus. She was continued on her seizure medications and underwent physical therapy and occupational therapy. She was eventually discharged home. FINAL DIAGNOSES: 1. Benign paroxysmal vertigo. 2. Seizure disorder. 3. Status post radial nerve stimulator placement. 4. Polypharmacy. 5. Depression and anxiety. DISPOSITION: The patient was discharged home. MEDICATION RECONCILIATION: Refer to medication list. FOLLOWUP: The patient was advised to follow up with PMD in a week. Carl العراقي M.D. I have been assigned to dictate discharge summary on this account and I was not involved in the patient's management. Melchor MurphyPQuyen DR: Sukumar JOB#: [id number] CC:
== END 2017-01-19 20:10 | disposition home or self-care (01) | DRG 111 ==
LOC: EDBD 18:18 → EMR 18:45 → 2E 21:38 → EDBEDREQ 21:53 → 4E 01-18 14:23
DX: H81.13 Benign paroxysmal vertigo, bilateral (principal); G40.409 Other generalized epilepsy and epileptic syndromes, not intractable, without status epilepticus; F41.8 Other specified anxiety disorders; R26.81 Unsteadiness on feet; T50.905A Adverse effect of unspecified drugs, medicaments and biological substances, initial encounter
CPT/HCPCS: 36415; 70450; 80053; 80185; 80299; 80300; 80329; 81003; 81025; 82550; 82962; 83735; 84100; 85025; 85610; 85730; 93005; J2405

== ENCOUNTER 2017-04-06 13:01 | Emergency (ER) | payer MEDICAID ==
[~2017-04-06] VITALS: Ht 160 cm; Wt 74.8 kg
[2017-04-06 13:10] VITALS: BP 110/75
[2017-04-06] MEDS ORDERED: LORazepam 1mg tab ORAL ONE (13:30)
--- NOTE | 2017-04-06 14:02 | Emergency Room Report ---
History of Present Illness General Chief Complaint: Seizure Source: Patient (MICKIE MARI D.O.) Present Illness HPI Patient presents with reports of seizure activity Here the patient is awake and reports that she feels that she had a seizure Denies any headache denies any chest pain Denies any back or flank pain as any abdominal pain Patient reports taking her Dilantin Patient has had multiple seizures and reports last one was about 2 months ago denies any neck pain or photophobia denies any focal weakness (MICKIE MARI D.O.) Allergies: Coded Allergies: NO KNOWN ALLERGIES (Unverified Allergy, Unknown, 09/29/16) Patient History Past Medical History: see triage record Pertinent Family History: none Last Menstrual Period: unknown Reviewed Nursing Documentation: PMH: Agreed, PSxH: Agreed (MICKIE MARI D.O.) Nursing Documentation-PMH Hx Cardiac Problems: Yes Hx Pacemaker: Yes - left upper chest Hx Cancer: No Hx Gastrointestinal Problems: No Hx Neurological Problems: Yes Hx Seizures: Yes Hx Epilepsy: Yes Hx Vertigo: Yes Hx Dizziness: Yes (MICKIE MARI D.O.) Review of Systems All Other Systems: negative except mentioned in HPI (MICKIE MARI D.O.) Physical Exam Vital Signs Date Time Temp Pulse Resp B/P (MAP) Pulse Ox O2 Delivery O2 Flow Rate FiO2 04/06/17 12:52 96.8 89 16 112/73 100 Room Air Sp02 EP Interpretation: reviewed, normal General Appearance: well appearing, no apparent distress Head: normocephalic, atraumatic Eyes: bilateral eye PERRL, bilateral eye EOMI ENT: hearing grossly normal, normal pharynx, TMs + canals normal, uvula midline Neck: full range of motion, supple, no meningismus, no bony tend Respiratory: lungs clear, normal breath sounds, no rhonchi, no respiratory distress, no retraction, no accessory muscle use Cardiovascular #1: normal peripheral pulses, regular rate, rhythm, no edema, no gallop, no JVD, no murmur Gastrointestinal: normal bowel sounds, non tender, soft, no mass, no organomegaly, non-distended, no guarding, no hernia, no pulsatile mass, no rebound Genitourinary: no CVA tenderness Musculoskeletal: normal inspection Neurologic: oriented x3, responsive, 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 Clinical course patient initially seen and evaluated by Dr. Mari; please see his note for full history and physical Dilantin level slightly supratherapeutic; therefore no additional Dilantin given here Patient given Ativan. Patient allowed to rest is now awake alert oriented x3. Diagnosis - seizure disorder stable and discharged to home. Followup with PMD. Return to ED if symptoms recur or worsen Labs Test 04/06/17 14:40 04/06/17 14:50 Phenytoin (Dilantin) Level 22.2 ug/mL (10-20) Urine HCG, Qualitative Negative (ANASTASIYA NAPIER M.D.) Last Vital Signs Date Time Temp Pulse Resp B/P (MAP) Pulse Ox O2 Delivery O2 Flow Rate FiO2 04/06/17 12:52 96.8 89 16 112/73 100 Room Air Status: improved (MICKIE MARI D.O.) Status: improved (ANASTASIYA NAPIER M.D.) Disposition: HOME, SELF-CARE Condition: Improved Referrals: NOT CHOSEN IPA/,REFERRING (PCP) Additional Instructions: Patient is provided with the discharge instructions notified to follow up with primary doctor in the next 2-3 days otherwise return to the er with any worsening symptoms. Please note that this report is being documented using [employer] technology. This can lead to erroneous entry secondary to incorrect interpretation by the dictating instrument. MICKIE MARI D.O. Apr 06, 2017 14:02 ANASTASIYA NAPIER M.D. Apr 06, 2017 16:49
[2017-04-06 15:05] VITALS: BP 122/72
[2017-04-06 15:29] VITALS: BP 114/70
== END 2017-04-06 15:29 | disposition home or self-care (01) ==
LOC: EDBD 13:01 → EMR 13:33
DX: G40.909 Epilepsy, unspecified, not intractable, without status epilepticus (principal); Z95.0 Presence of cardiac pacemaker
CPT/HCPCS: 36415; 80185; 81025; 99284

== ENCOUNTER 2017-10-02 13:37 | Emergency (ER) | payer MEDICAID ==
[~2017-10-02] VITALS: Ht 154.9 cm; Wt 72.6 kg
[2017-10-02] MEDS ORDERED: Norco 5mg/325mg tab PO ONE (14:15)
--- NOTE | 2017-10-02 14:54 | Diagnostic Imaging Report ---
Indication: Pain Findings: 3 views of the right wrist were obtained. There is acute nondisplaced transverse fracture involving the distal radial metaphysis. The fracture extends into the distal radial ulnar joint. There is no malalignment. Views obtained are suboptimal. There is no true lateral view obtained. IMPRESSION: Acute distal radius fracture. Study is technically limited
--- NOTE | 2017-10-02 14:55 | Diagnostic Imaging Report ---
Indication: Pain Findings: 2 views of the right forearm were obtained. There is acute fracture of the distal radius. There is no soft tissue swelling. No malalignment identified. IMPRESSION: Acute distal radius fracture
[2017-10-02] MEDS ORDERED: NORCO 5-325 TA1 EACH ORAL (15:05)
[2017-10-02] MEDS ORDERED: IBUPROFEN600 MG ORAL (15:05)
[2017-10-02 15:10] VITALS: BP 117/66
--- NOTE | 2017-10-02 15:23 | Emergency Room Report ---
History of Present Illness General Chief Complaint: Upper Extremity Injury Source: Patient Present Illness HPI 37-year-old female presents ED for evaluation. Patient had a mechanical fall today in her house injured her right arm. Presents with pain and swelling to her right wrist. Denies hitting her head or LOC. Pain is throbbing, 10 out of 10, nonradiating. Denies any other injuries. No other aggravating or relieving factors. Denies any other associated symptoms Allergies: Coded Allergies: NO KNOWN ALLERGIES (Unverified Allergy, Unknown, 09/29/16) Patient History Past Medical History: CAD Past Surgical History: pacemaker Pertinent Family History: none Social History: Denies: smoking, alcohol use, drug use Last Menstrual Period: last month Now: No Immunizations: UTD Reviewed Nursing Documentation: PMH: Agreed; PSxH: Agreed Nursing Documentation-PMH Past Medical History: No History, Except For Hx Cardiac Problems: Yes Hx Pacemaker: Yes Hx Cancer: No Hx Gastrointestinal Problems: No Hx Neurological Problems: Yes Hx Seizures: Yes Hx Epilepsy: Yes Hx Vertigo: Yes Hx Dizziness: Yes Review of Systems All Other Systems: negative except mentioned in HPI Physical Exam Vital Signs Date Time Temp Pulse Resp B/P (MAP) Pulse Ox O2 Delivery O2 Flow Rate FiO2 10/02/17 13:55 98.2 76 18 135/80 98 Room Air 98.2 Sp02 EP Interpretation: reviewed, normal General Appearance: no apparent distress, alert, GCS 15, non-toxic Head: normocephalic, atraumatic Eyes: bilateral eye normal inspection, bilateral eye PERRL ENT: hearing grossly normal, normal pharynx, no angioedema, normal voice Neck: full range of motion, supple/symm/no masses Respiratory: chest non-tender, lungs clear, normal breath sounds, speaking full sentences Cardiovascular #1: regular rate, rhythm, no edema Cardiovascular #2: 2+ carotid (R), 2+ carotid (L), 2+ radial (R), 2+ radial (L) , 2+ dorsalis pedis (R), 2+ dorsalis pedis (L) Gastrointestinal: normal bowel sounds, non tender, soft, non-distended, no guarding, no rebound Rectal: deferred Genitourinary: normal inspection, no CVA tenderness Musculoskeletal: back normal, gait/station normal, normal range of motion, swelling - R wrist swelling, tender Neurologic: alert, oriented x3, responsive, motor strength/tone normal, sensory intact, speech normal Psychiatric: judgement/insight normal, memory normal, mood/affect normal, no suicidal/homicidal ideation Reflexes: 3+ bicep (R), 3+ bicep (L), 3+ tricep (R), 3+ tricep (L), 3+ knee (R) , 3+ knee (L) Skin: normal color, no rash, warm/dry, well hydrated Lymphatic: no adenopathy Procedures Splinting Splinting : Consent: Verbal Pre-Made Type: velcro Pre-Proc Neuro Vasc Exam: normal Post-Proc Neuro Vasc Exam: normal Patient Tolerated: Well Complications: None Medical Decision Making Diagnostic Impression: Primary Impression: Wrist fracture Qualified Codes: S62.101A - Fracture of unspecified carpal bone, right wrist, initial encounter for closed fracture ER Course Hospital Course 37-year-old F presents to ED complaining of RUE pain s/p fall Differential diagnoses include: Fracture, dislocation, sprain, contusion Clinical course Patient placed on stretcher. After initial history and physical, I ordered pain medications and Xrays of R elbow, wrist and forearm Xrays read shows distal radius fx. 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 Recommend close follow-up with orthopedics as outpatient Diagnosis - wrist fracture Stable and discharged to home with prescription for Motrin, [place]. apply ice, keep elevated. Followup with PMD. Return to ED if symptoms recur or worsen Other X-Ray Diagnostic Results Other X-Ray Diagnostic Results #1: X-Ray ordered: R wrist # of Views/Limited Vs Complete: 3 View Indication: Pain EP Interpretation: Yes Interpretation: no dislocation Impression: Other - distal radius fx Electronically Signed by: Electronically signed by Renaldo Perkins MD Other X-Ray Diagnostic Results #2: X-Ray ordered: R forearm # of Views/Limited Vs Complete: 2 View Indication: Pain EP Interpretation: Yes Interpretation: no dislocation, other - distal radius fx Impression: Other Electronically Signed by: Electronically signed by Renaldo Perkins MD Other X-Ray Diagnostic Results #3: X-Ray ordered: Right elbow # of Views/Limited Vs Complete: 3 View Indication: Pain EP Interpretation: Yes Interpretation: no dislocation, no soft tissue swelling, no fractures Impression: No acute disease Electronically Signed by: Electronically signed by Renaldo Perkins MD Last Vital Signs Date Time Temp Pulse Resp B/P (MAP) Pulse Ox O2 Delivery O2 Flow Rate FiO2 10/02/17 15:10 98.6 74 16 117/66 98 Room Air 208.8 Status: improved Disposition: HOME, SELF-CARE Condition: Stable Scripts Hydrocodone Bit/Acetaminophen 5-325* (NORCO 5-325*) 1 Each Tablet 1 TAB ORAL Q6H PRN for For Pain, #10 TAB 0 Refills Prov: Renaldo Perkins MD 10/02/17 Ibuprofen* (MOTRIN*) 600 Mg Tablet 600 MG ORAL Q8H PRN for For Pain, #30 TAB 0 Refills Prov: Renaldo Perkins MD 10/02/17 Patient Instructions: Wrist Fracture, [id number] Renaldo Perkins MD October 02, 2017 15:23
--- NOTE | 2017-10-03 10:37 | Diagnostic Imaging Report ---
Indication: Pain Findings: 2 views of the right elbow were obtained. The third lateral view was not obtained as the patient was unable to tolerate further imaging. No obvious fracture or malalignment identified. The study is considered incomplete as no lateral view was done. IMPRESSION: No obvious acute injury. Study is incomplete.
== END 2017-10-02 15:10 | disposition home or self-care (01) ==
LOC: EMR 14:14
DX: S52.591A Other fractures of lower end of right radius, initial encounter for closed fracture (principal); W19.XXXA Unspecified fall, initial encounter; Y92.009 Unspecified place in unspecified non-institutional (private) residence as the place of occurrence of the external cause; I25.10 Atherosclerotic heart disease of native coronary artery without angina pectoris; Z95.0 Presence of cardiac pacemaker
CPT/HCPCS: 99284